=== PATIENT | male | born 1935 | race Caucasian/White ===

== ENCOUNTER 2016-11-21 23:02 | Emergency (ER) | payer MEDICARE, OTHER ==
[2016-11-21 23:37] VITALS: BP 148/70
[2016-11-22] MEDS ORDERED: DOXYcycline CAP(*) 100 MG PO ONE (00:16)
--- NOTE | 2016-11-22 00:33 | ED ---
Bite Injury/Animal - HPI Summary HPI Summary: Patient found a small tick on the shaft of his penis two hours ago that was not there earlier in the day. He denies pain or redness. He did not attempt to remove it himself. - History of Current Complaint Chief Complaint: EDAnimalBite Stated Complaint: TICK ON PENIS Time Seen by Provider: 11/21/16 23:45 Hx Obtained From: Patient Onset of Injury: Happened hours ago, Still Present Type of Bite: Wild Animal - tick Hx of Bite: Unprovoked Has Animal Been Immunized?: N/A Severity Initially: Mild Severity Currently: Mild Pain Intensity: 0 Pain Scale Used: 0-10 Numeric Aggravating Factor(s): Nothing Alleviating Factor(s): Nothing Associated Signs And Symptoms: Positive: Negative - Allergies/Home Medications Allergies/Adverse Reactions: Allergies Allergy/AdvReac Type Severity Reaction Status Date / Time No Known Allergies Allergy Verified 10/26/14 08:25 PMH/Surg Hx/FS Hx/Imm Hx Cardiovascular History: Reports: Hx Angina - POSSIBLE, Hx Hypertension - ON MEDS , [employer] DR. JOSE R ROJAS, [facility], Other Cardiovascular Problems/ Disorders - HX OF AFIB TIMES ONE GI History: Reports: Hx Gastroesophageal Reflux Disease - ON MEDS Musculoskeletal History: Denies: Hx Rheumatoid Arthritis, Hx Osteoporosis Sensory History: Reports: Hx Cataracts - RIGHT, Hx Contacts or Glasses - GLASSES Denies: Hx Hearing Aid Opthamlomology History: Reports: Hx Cataracts - RIGHT, Hx Contacts or Glasses - GLASSES - Surgical History Surgery Procedure, Year, and Place: BACK SURGERY X 2, ABOUT 25-30 YEARS AGO, [employer] [place] Hx Anesthesia Reactions: No Infectious Disease History: No Infectious Disease History: Denies: Traveled Outside the [place] in Last 30 Days - Family History Known Family History: Positive: None - Social History Occupation: Retired Lives: With Family Alcohol Use: Weekly Substance Use Type: Reports: None Smoking Status (MU): Never Smoked Tobacco Review of Systems Positive: Other - pin head size tick on dorsal penile shaft All Other Systems Reviewed And Are Negative: Yes Physical Exam Triage Information Reviewed: Yes Vital Signs On Initial Exam: Initial Vitals Temp Pulse Resp BP Pulse Ox 98.5 F 68 19 148/70 97 11/21/16 23:35 11/21/16 23:35 11/21/16 23:35 11/21/16 23:35 11/21/16 23:35 Vital Signs Reviewed: Yes Appearance: Positive: Well-Appearing, No Pain Distress, Well-Nourished Skin: Positive: Warm, Skin Color Reflects Adequate Perfusion, Dry, Tender - pin head size tick on dorsal penile shaft, Soft Head/Face: Positive: Normal Head/Face Inspection Eyes: Positive: EOMI, FLACA, Conjunctiva Clear ENT: Positive: Hearing grossly normal Respiratory/Lung Sounds: Positive: Breath Sounds Present Cardiovascular: Positive: RRR Musculoskeletal: Positive: Strength/ROM Intact Neurological: Positive: Sensory/Motor Intact, Alert, Oriented to Person Place, Time, NV Bundle Intact Distally, Normal Gait Psychiatric: Positive: Affect/Mood Appropriate AVPU Assessment: Alert Procedures - Procedure Summary Procedure Summary: Pin head size tick was removed from dorsal penile shaft with tweezers by twisting. The tick was completely removed and the patient tolerated the procedure well. Diagnostics - Vital Signs Vital Signs Temp Pulse Resp BP Pulse Ox 11/21/16 23:35 98.5 F 68 19 148/70 97 - Laboratory Lab Statement: Any lab studies that have been ordered have been reviewed, and results considered in the medical decision making process. Bite Injury Course/Dx - Diagnoses Differential Diagnosis/HQI/PQRI: Positive: Cellulitis, Laceration, Puncture, Deep Space Infection Provider Diagnosis: Tick bite Discharge - Discharge Plan Condition: Stable Disposition: HOME Patient Education Materials: Tick Bite (ED) Referrals: Bruno Stover MD [Primary Care Provider] - Additional Instructions: Please follow-up with your primary care provider if symptoms develop.
== END 2016-11-22 00:28 | disposition home or self-care (01) ==
LOC: ED 23:02
DX: S30.862A Insect bite (nonvenomous) of penis, initial encounter (principal); W57.XXXA Bitten or stung by nonvenomous insect and other nonvenomous arthropods, initial encounter; Y92.9 Unspecified place or not applicable; I10 Essential (primary) hypertension; I48.91 Unspecified atrial fibrillation; K21.9 Gastro-esophageal reflux disease without esophagitis
CPT/HCPCS: 99281; A9270-GY

== ENCOUNTER 2016-11-24 14:39 | Emergency (ER) | payer MEDICARE, OTHER ==
[2016-11-24 15:00] VITALS: BP 132/78
[2016-11-24] MEDS ORDERED: Tetan/Diph/Pertus SYR(Tdap)* 0.5 ML SYR(BOOSTRIX) use SYR IM ONE (15:04)
[2016-11-24] MEDS ORDERED: Amoxicillin/Clavulanate TAB* 875 MG PO ONE (15:04)
--- NOTE | 2016-11-24 15:46 | UC ---
Bite Injury/Animal HPI - HPI Summary HPI Summary: [employer], WENT TO [facility] [place], DOG BIT LEFT FACE/JAW. LAST TETANUS UNKNOWN. - History of Current Complaint Chief Complaint: UCBiteInjury Stated Complaint: DOG BITE Time Seen by Provider: 11/24/16 14:41 Hx Obtained From: Patient Pain Intensity: 45 Pain Scale Used: 0-10 Numeric Onset/Duration: Sudden Onset, Lasting Hours, Still Present Type of Bite: Pet Has Animal Been Immunized?: Yes Character: Puncture Aggravating Factor(s): Nothing Alleviating Factor(s): Nothing Associated Signs And Symptoms: Positive: Drainage. Negative: Fever, Erythema, Swelling, Lymphadenopathy Animal Available for Observation: Yes Animal Control Notified: Yes - Risk Factors Infection/Sepsis Risk Factors: Full-Thickness Puncture - Allergies/Home Medications Allergies/Adverse Reactions: Allergies Allergy/AdvReac Type Severity Reaction Status Date / Time No Known Allergies Allergy Verified 11/24/16 15:00 PMH/Surg Hx/FS Hx/Imm Hx Previously Healthy: Yes - Surgical History Surgical History: Yes Surgery Procedure, Year, and Place: BACK SURGERY X 2, ABOUT 25-30 YEARS AGO, [place] - Family History Known Family History: Positive: None Negative: Diabetes - Social History Occupation: Retired Lives: With Family Alcohol Use: None Substance Use Type: None Smoking Status (MU): Never Smoked Tobacco Review of Systems Constitutional: Negative Skin: Other - ABRASIONS AND 1CM X 1CM X 2mm PUNCTURE WOUND LEFT JAW Eyes: Negative ENT: Negative Respiratory: Negative Cardiovascular: Negative Gastrointestinal: Negative Genitourinary: Negative Motor: Negative Neurovascular: Negative Musculoskeletal: Negative Neurological: Negative Psychological: Negative All Other Systems Reviewed And Are Negative: Yes Physical Exam Triage Information Reviewed: Yes Appearance: Well-Appearing, No Pain Distress, Well-Nourished Vital Signs: Initial Vital Signs Temp 98.0 F 11/24/16 14:57 Pulse 60 11/24/16 14:57 Resp 14 11/24/16 14:57 BP 132/78 11/24/16 14:57 Pulse Ox 97 11/24/16 14:57 Vital Signs Reviewed: Yes Eye Exam: Normal ENT Exam: Normal ENT: Positive: Normal ENT inspection, Hearing grossly normal, TMs normal Dental Exam: Normal Neck exam: Normal Neck: Positive: Supple, Nontender, No Lymphadenopathy Respiratory Exam: Normal Respiratory: Positive: Chest non-tender, Lungs clear, Normal breath sounds, No respiratory distress, No accessory muscle use Cardiovascular Exam: Normal Cardiovascular: Positive: RRR, No Murmur, Pulses Normal Abdominal Exam: Normal Musculoskeletal Exam: Normal Musculoskeletal: Positive: Strength Intact, ROM Intact Neurological Exam: Normal Psychological Exam: Normal Skin: Positive: Other - ABRASIONS AND 1CM X 1CM X 2mm PUNCTURE WOUND LEFT JAW Bite Injury Course/Dx - Differential Dx/Diagnosis Differential Diagnosis/HQI/PQRI: Laceration, Puncture, Rabies Exposure, Superficial Infection, Deep Space Infection Provider Diagnoses: DOG BITE; ABRASIONS AND 1CM X 1CM X 2mm PUNCTURE WOUND LEFT JAW; TETANUS PROPHYLAXIS Discharge - Discharge Plan Condition: Stable Disposition: HOME Prescriptions: Amoxicillin/Clavulanate TAB* [Augmentin TAB 875*] 875 mg PO BID #19 tab Patient Education Materials: Animal Bite (ED) Referrals: Bruno Stover MD [Primary Care Provider] - Images Head: 1 - ABRASIONS AND 1CM X 1CM X 2mm PUNCTURE WOUND LEFT JAW
== END 2016-11-24 15:30 | disposition home or self-care (01) ==
LOC: UCEAST 14:39
DX: S01.83XA Puncture wound without foreign body of other part of head, initial encounter (principal); S00.81XA Abrasion of other part of head, initial encounter; W54.0XXA Bitten by dog, initial encounter
CPT/HCPCS: 90471; 90715; 99212; A9270-GY; G0463